=== PATIENT | female | born 1980 | race Caucasian/White ===

== ENCOUNTER 2022-01-19 11:58 | Emergency (ER) | payer BC ==
[~2022-01-19] VITALS: Ht 152.4 cm; Wt 74.8 kg
[~2022-01-19 11:58] MED LIST: CYCL10 PO; Ciprodex Otic7.5 ML BOTHEARS; HYDACE5 PO; IBUP800 PO; LIDO2L TOP; MULVITMINE PO; NEOPOLHYDS LEFTEAR; NORETHTP; OXYACE5T PO; PROM25 PO; RISP2 PO; TOBDEXOPSU OP; Ultram50 MG PO; VARE1 PO
== END 2022-01-19 14:45 | disposition home or self-care (01) ==
LOC: ER 11:58
DX: S06.0X1A Concussion with loss of consciousness of 30 minutes or less, initial encounter (principal); W20.8XXA Other cause of strike by thrown, projected or falling object, initial encounter; M54.2 Cervicalgia; F17.200 Nicotine dependence, unspecified, uncomplicated; Z88.0 Allergy status to penicillin; Z88.2 Allergy status to sulfonamides; Z88.8 Allergy status to other drugs, medicaments and biological substances
CPT/HCPCS: 70450; 72125